=== PATIENT | female | born 1955 | race Caucasian/White ===

== ENCOUNTER 2021-09-10 10:24 | Emergency (ER) | payer BC ==
[2021-09-10 12:43] LABS: BASO % 0.6 % (0-2.0); EOS % 1.8 % (0-4.5); HEMOGLOBIN 13.5 GM/dL (10.7-15.3); LYMPH % 36.6 % (8-40); MCH 31.4 pg (25.7-33.7); MCHC 34.6 g/dl (32.0-36.0); MEAN CELL VOLUME 90.9 fl (80-96); PLATELET COUNT 274 10^3/uL (134-434); RBC 4.29 M/mm3 (3.60-5.2); RDW 15.3 % (11.6-15.6); WHITE BLOOD COUNT 8.4 K/mm3 (4.0-10.0)
[2021-09-10 12:52] VITALS: BMI 19.8
[2021-09-10 12:54] LABS: INR 0.97 (0.83-1.09); PROTHROMBIN TIME (PATIENT) 11.3 SEC (9.7-13.0)
[2021-09-10 12:57] LABS: ACTIVATED PTT 28.3 SECONDS (25.2-36.5)
[2021-09-10 13:00] LABS: CHLORIDE 117 mmol/L (98-107); SODIUM 146 mmol/L (136-145)
[2021-09-10 13:02] LABS: CALCIUM 9.3 mg/dL (8.5-10.1)
[2021-09-10 13:03] LABS: ALBUMIN 4.2 g/dl (3.4-5.0); ANION GAP 7 MMOL/L (8-16); BLOOD UREA NITROGEN 28.6 mg/dL (7-18); CO2 22 mmol/L (21-32); GLUCOSE,RANDOM 84 mg/dL (74-106); LIPASE 283 U/L (73-393)
[2021-09-10 13:06] LABS: CREATININE 1.6 mg/dL (0.55-1.3); SGOT/AST 18 U/L (15-37); SGPT/ALT 18 U/L (13-61)
[2021-09-10 13:07] LABS: BILIRUBIN,TOTAL 0.2 mg/dL (0.2-1)
[2021-09-10 13:08] LABS: ALK PHOS 99 U/L (45-117)
[2021-09-10 17:03] VITALS: BP 133/68; PULSE 82; TEMP 98.6
== END 2021-09-10 17:00 | disposition home or self-care (01) ==
LOC: JER 10:24
DX: R07.89 Other chest pain (principal)
CPT/HCPCS: 36415; 71046-TC-FY; 71275-TC; 80053; 82550; 83690; 84484; 85025; 85379; 85610; 85730; 93005; 93010; 99285-25; C9803; U0003; U0005